=== PATIENT | female | born 1980 | race Caucasian/White ===

== ENCOUNTER → 2017-04-08 | Outpatient (REF) | payer OTHER | LOC: M SFHCWAGY 15:18 | PROVIDERS: ATTEND Family Medicine | DX: Z12.4 Encounter for screening for malignant neoplasm of cervix (principal) ==

== ENCOUNTER → 2017-07-27 | Outpatient (CLI) | payer OTHER | LOC: M RAD 14:37 | DX: N63.20 Unspecified lump in the left breast, unspecified quadrant (principal) | CPT/HCPCS: 77065 ==

== ENCOUNTER → 2017-09-30 | Outpatient (CLI) | payer OTHER | LOC: M RAD 14:45 | DX: Z30.431 Encounter for routine checking of intrauterine contraceptive device (principal) | CPT/HCPCS: 76856 ==

== ENCOUNTER → 2017-10-18 | Outpatient (CLI) | payer OTHER | LOC: M RAD 17:44 | DX: T19.3XXA Foreign body in uterus, initial encounter (principal); Z30.8 Encounter for other contraceptive management | CPT/HCPCS: 74018 ==

== ENCOUNTER 2018-12-01 07:57 | Day surgery (SDC) | payer OTHER ==
[~2018-12-01] VITALS: Ht 154.9 cm; Wt 80.7 kg
[~2018-12-01 07:57] MED LIST: BRONCHW PO; FLUO20CA19 PO; METR0.7533; OMEP-221 PO
[2018-12-01] MEDS ORDERED: BUPIVACAINE HCL 0.25% 30 ML VIAL As Ordered ONE (08:29)
[2018-12-01 08:34] LABS: HEMOGLOBIN 12.8 g/dl (12.0-15.5); MEAN CORPUSCULAR HGB CONC 32.8 g/dl (32.0-36.5); MEAN CORPUSCULAR VOLUME 88.4 fl (80.0-96.0); PLATELET COUNT, AUTOMATED 221 10^3/uL (150-450); RED BLOOD COUNT 4.41 10^6/uL (4.00-5.40); WHITE BLOOD COUNT 5.9 10^3/uL (4.0-10.0)
[2018-12-01 08:35] LABS: URINE PREG TEST NEGATIVE (NEGATIVE)
[2018-12-01] MEDS ORDERED: MIDAZOLAM INJ 2 MG/2 ML VIAL (J2250) As Ordered ONE (09:04)
[2018-12-01] MEDS ORDERED: ROCURONIUM BROMIDE 50 MG/5 ML VIAL As Ordered ONE (09:04)
[2018-12-01] MEDS ORDERED: LIDOCAINE 2% INJ 100 MG/5 ML SDV (FOR ANES.) As Ordered ONE (09:04)
[2018-12-01] MEDS ORDERED: fentaNYL 100 MCG/2 ML INJECTION (J3010) As Ordered ONE (09:04)
[2018-12-01] MEDS ORDERED: dexameTHASONE 4 MG/ML 1ML VIAL (J1100) As Ordered ONE (09:04)
[2018-12-01] MEDS ORDERED: ACETAMINOPHEN 1000MG 100ML IV BTL (OFIRMEV) (J0131 PER 10MG) As Ordered ONE ×2 (09:04→09:18)
[2018-12-01] MEDS ORDERED: PROPOFOL 200 MG/20 ML VIAL As Ordered ONE (09:04)
[2018-12-01] MEDS ORDERED: ONDANSETRON 4MG/2ML VIAL (J2405) As Ordered ONE (09:08)
[2018-12-01] MEDS ORDERED: SUGAMMADEX SODIUM 500 MG/5 ML VIAL (BRIDION) As Ordered ONE (09:24)
[2018-12-01] MEDS ORDERED: KETOROLAC 30 MG/ML VIAL (J1885) As Ordered ONE (10:07)
[2018-12-01] MEDS ORDERED: oxyCODONE 5MG TAB As Ordered ONE (10:07)
[2018-12-01] MEDS ORDERED: OXYC1TAB23 PO (10:17)
[2018-12-01] MEDS ORDERED: IBUP-1022 PO (10:18)
[2018-12-01] MEDS: oxyCODONE 5MG TAB PO PRN ×2 (10:40→10:45)
[2018-12-01] MEDS ORDERED: PERCOCET 5MG/325MG TAB PO PRN (10:45)
[2018-12-01] MEDS ORDERED: PROMETHAZINE INJ 25 MG/ML VIAL (J2550) IV PRN (10:45)
[2018-12-01] MEDS ORDERED: fentaNYL 100 MCG/2 ML INJECTION (J3010) IV PRN (10:45)
[2018-12-01] MEDS ORDERED: LR 1,000 ML IV SCH ×2 (10:45)
[2018-12-01] MEDS ORDERED: KETOROLAC 30 MG/ML VIAL (J1885) IV PRN (10:45)
[2018-12-01 12:11] VITALS: BP 110/64
--- NOTE | 2018-12-02 08:16 | RO ---
DATE OF PROCEDURE: 12/01/2018 PREPROCEDURE DIAGNOSIS: Undesired fertility. POSTPROCEDURE DIAGNOSIS: Undesired fertility. PROCEDURE: Laparoscopic bilateral salpingectomy, removal of Nexplanon device from left arm. SURGEON: Dr. Zachariah Lewis. ANESTHESIA: General endotracheal. ESTIMATED BLOOD LOSS: Minimal. URINE OUTPUT: 50 mL. FINDINGS: Normal pelvis, uterus, fallopian tubes and ovaries. Normal upper abdomen. OPERATIVE SUMMARY: The patient was taken to the operating room where general endotracheal anesthesia was induced. She was prepped and draped in a sterile fashion in dorsal lithotomy position. The bladder was emptied with a catheter. Hulka tenaculum was placed using the manipulator. Periumbilical incision was made with a scalpel. Veress needle was placed through this incision while tenting upon the skin of the abdomen. Intra-abdominal location of the Veress needle was assessed with use of saline filled syringe. Pneumoperitoneum was created. Veress needle was removed. 5 mm trocar using Visiport was inserted. An 8 mm and 5 mm suprapubic port were placed under direct visualization. Fallopian tubes were grasped at the fimbriated end with the grasping instrument. LigaSure device was used to coagulate and incise broad ligament attachments to the tubes. Tubes were amputated near their origin. Both tubes were removed through the suprapubic ports. The pneumoperitoneum was released. All instruments were removed. Skin was closed with #4-0 Monocryl subcuticular sutures. Attention was turned to the left arm which was prepped and draped in a sterile fashion. Incision was made with a scalpel in the appropriate area in the left arm overlying the Nexplanon device. Mosquito forceps was used to dissect the adhesions to the device, the device was then grasped at its distal end and removed intact. A single interrupted suture of #4-0 Monocryl was placed and a bandage was placed. The patient was extubated and went to recovery room in stable condition.
== END 2018-12-01 12:45 | disposition home or self-care (01) ==
LOC: M SDC 07:57
PROVIDERS: ATTEND Specialist
DX: Z30.2 Encounter for sterilization (principal); K21.9 Gastro-esophageal reflux disease without esophagitis; F41.9 Anxiety disorder, unspecified; Z79.899 Other long term (current) drug therapy
CPT/HCPCS: 11982; 36415; 58661; 84703; 85027; 88302; J0131; J1100; J1885; J2250; J2405; J3010

== ENCOUNTER 2020-05-03 19:33 | Day surgery (SDC) | payer OTHER ==
[~2020-05-03] VITALS: Ht 154.9 cm; Wt 81.8 kg
[~2020-05-03 19:33] MED LIST changes: -FLUO20CA19 PO; +FLUO20CA22 PO; +IBUP-1022 PO; +OXYC1TAB23 PO
[2020-05-03] MEDS ORDERED: PROBCAP14 PO (19:55)
[2020-05-03] MEDS ORDERED: PIPERACILLIN/TAZOBACTAM SOD 3.375 GM in D5W MINI-BAG PLUS 50 ML IV ONE (20:45)
[2020-05-03] MEDS: LR 1,000 ML IV SCH (21:12)
[2020-05-03] MEDS: MORPHINE 2 MG/ML 1ML VIAL (J2270) IV PRN (21:14)
[2020-05-03] MEDS ORDERED: dexameTHASONE 4 MG/ML 1ML VIAL (J1100 PER 1MG) As Ordered ONE (21:35)
[2020-05-03] MEDS ORDERED: MIDAZOLAM INJ 2MG/2ML VIAL (J2250 PER 1MG) As Ordered ONE (21:35)
[2020-05-03] MEDS ORDERED: propofoL 200 MG/20 ML VIAL As Ordered ONE (21:35)
[2020-05-03] MEDS ORDERED: ONDANSETRON 4MG/2ML VIAL As Ordered ONE (21:35)
[2020-05-03] MEDS ORDERED: ROCURONIUM BROMIDE 50 MG/5 ML VIAL As Ordered ONE (21:35)
[2020-05-03] MEDS ORDERED: LIDOCAINE 2% 100MG/5ML SDV (FOR ANES.) As Ordered ONE (21:35)
[2020-05-03] MEDS ORDERED: fentaNYL 250 MCG/5 ML INJECTION (J3010) As Ordered ONE (21:35)
[2020-05-03] MEDS ORDERED: SUGAMMADEX SODIUM 500 MG/5 ML VIAL (BRIDION) As Ordered ONE (21:35)
[2020-05-03] MEDS ORDERED: BUPIVACAINE HCL 0.5% 30 ML VIAL As Ordered ONE (21:44)
[2020-05-03] MEDS ORDERED: LIDOCAINE 1% MDV 20ML VIAL As Ordered ONE (21:44)
[2020-05-03] MEDS ORDERED: PHENYLephrine HCL 500 MCG/5 ML (100MCG/ML) SYRINGE (J2370) As Ordered ONE (22:13)
[2020-05-03] MEDS ORDERED: ePHEDrine SULFATE 25 MG/5 ML(5MG/ML) SYRINGE As Ordered ONE (22:13)
[2020-05-03] MEDS ORDERED: ACETAMINOPHEN 1000MG 100ML IV BTL (OFIRMEV) (J0131 PER 10MG) As Ordered ONE (22:19)
[2020-05-03] MEDS ORDERED: KETOROLAC 60MG 2ML VIAL As Ordered ONE (23:19)
[2020-05-03] MEDS ORDERED: oxyCODONE 5MG TAB PO PRN (23:30)
[2020-05-03] MEDS ORDERED: MEPERIDINE INJ 25 MG/ML VIAL (J2175) IV PRN (23:30)
[2020-05-03] MEDS ORDERED: METOCLOPRAMIDE INJ 10MG/2ML VIAL (J2765 PER 1) IV PRN (23:30)
[2020-05-03] MEDS ORDERED: ONDANSETRON 4MG/2ML VIAL IV PRN (23:30)
[2020-05-03] MEDS ORDERED: fentaNYL 100 MCG/2 ML INJECTION (J3010) IV PRN (23:30)
[2020-05-03] MEDS ORDERED: LR 1,000 ML IV SCH (23:30)
[2020-05-04] VITALS (8 sets, daily range): BP systolic 97–138; BP diastolic 47–69
[2020-05-04] MEDS ORDERED: ACETAMINOPHEN TAB 650MG DOSE (2X325MG) PO PRN
[2020-05-04] MEDS ORDERED: oxyCODONE 5MG TAB PO PRN
[2020-05-04] MEDS: IBUPROFEN 600MG TAB PO PRN ×2 (01:40→14:03)
[2020-05-04] MEDS: MORPHINE 2 MG/ML 1ML VIAL (J2270) IV PRN ×2 (03:42→06:57)
[2020-05-04] MEDS: LR 1,000 ML IV SCH (04:43)
[2020-05-04] MEDS ORDERED: FLUoxetine 20 MG CAP PO SCH (09:00)
--- NOTE | 2020-05-05 11:50 | RO ---
DATE OF OPERATION: 05/03/2020 PREOPERATIVE DIAGNOSIS: Acute appendicitis. POSTOPERATIVE DIAGNOSIS: Ruptured right ovarian follicle with some peritoneal blood and possible early appendicitis. PROCEDURE: Laparoscopic appendectomy. SURGEON: Rogelio Butcher MD ANESTHESIA: General. INDICATION FOR THE PROCEDURE: The patient is a 39-year-old woman who presented to the emergency department with a one day history of worsening lower abdominal pain. This had become primarily located in her right lower quadrant. She had significant tenderness to palpation. She was seen at [facility] and then referred to [facility] after a CT scan was obtained. It was interpreted as showing possible early appendicitis with some mild enlargement of the appendix and a suggestion of some periappendiceal inflammation. She is now for a laparoscopic appendectomy. OPERATIVE PROCEDURE: The patient was brought to the operating room and placed on the table in a supine position. She was placed under general endotracheal anesthesia. The patient's abdomen was prepped and draped in a sterile fashion. 0.5% Marcaine was infiltrated at each of the trocar sites as needed. A short transverse supraumbilical incision was made and deepened into the fascia. A Veress need was inserted; and after positive hanging drop test, the abdomen was inflated with carbon dioxide gas. After the abdomen was inflated, the fascia was scored at the midline and a 12 mm trocar was placed without difficulty. The laparoscope was inserted. Initial examination showed a small amount of bloody fluid noted in the pelvis and in the pericolic gutters in the lower part of abdomen. The small and large bowel looks normal and other than a small amount of bloody fluid. Two 5 mm ports were placed in the left lower quadrant. The patient was tilted to a slight Trendelenburg and rolled slightly to the left. Graspers were inserted. The terminal ileum was retracted medially and the appendix was identified lying along the retroperitoneum. This was perhaps slightly enlarged relative to normal, but it may be slightly hyperemic, but certainly did not appear significantly inflamed. There was no obvious inflammatory exudate and the appendix was soft and not indurated. Inspection in the pelvis identified the ovaries on both sides. There were small cystic area is noted on both sides with a large cyst in the superior aspect of the right ovary consistent with a ruptured follicle. There was an opening from the follicle and this would seem to have been the region for the source of the blood. A small amount of bloody fluid was suctioned from the lower abdomen and pelvis. There was no evidence of any ongoing bleeding. Attention was then turned to the appendix. I did contact Dr. Zachariah Lewis and ask if he thought there would be any contraindication to removing the appendix in the face of a small amount of bloody fluid in the abdomen and he felt there was not. The mesoappendix was then divided using the hook cautery with care to cauterize the appendicular vessels. The base of the appendix was stapled at its junction with the cecum with an endoscopic linear cutter 45 mm stapler with a blue load. The appendix was placed in an Endopouch. The right lower quadrant was irrigated and then inspected. There was no significant bleeding. The patient was returned to a flat position. The abdomen was deflated and the trocars were all removed. The appendix was recovered through the supraumbilical site. The fascia was closed with interrupted simple sutures of 2-0 Vicryl. The skin incisions were all closed with buried 4-0 Vicryl and Steri-Strips. Light dressings were applied. The patient tolerated the procedure well without apparent complications. She was awakened in the operating room, extubated and moved to the recovery room in stable condition. AUBREY
--- NOTE | 2020-05-05 12:56 | IPN ---
DATE: 05/04/2020 HISTORY OF PRESENT ILLNESS: The patient is a 39-year-old woman who underwent a laparoscopic appendectomy last evening. Her preoperative CT scan showed a 3 cm cyst in the right ovary but also showed an appendix that was described as somewhat dilated and with some mild periappendiceal inflammation. Her tenderness seemed to be in the appropriate position for her appendix. At surgery she was found to have a ruptured right ovarian follicle with a small amount of free blood in the abdomen. The appendix was noted to be perhaps mildly distended but did not appear acutely inflamed and was not indurated. She underwent an appendectomy. Vital signs show that the patient has been afebrile since her surgery. Her pulse is in the 70s and her blood pressure is excellent. Room air oxygen saturation is normal. Intake and output shows that she had 1,500 in yesterday and has several voids recorded but not measured. She has been taking liquids well today. PHYSICAL EXAMINATION: GENERAL APPEARANCE: She is alert and appears comfortable. She denies any nausea. She has had some flatus. HEART: Regular rhythm. LUNGS: clear. ABDOMEN: Mildly obese. She has very active bowel sounds. Her three dressings are clean and dry and there is no undue tenderness. IMPRESSION: The patient is doing very well one day postop from a laparoscopic appendectomy. Her pain was more likely related to her ruptured ovarian follicle with a small amount of intraperitoneal blood. The appendix was perhaps mildly distended but did not appear acutely inflamed. Her pathology is pending. PLAN: The patient was counseled that it was likely her ovarian cyst that was causing her pain. The appendix was removed and she will never have to wonder in the future if she has a similar pain if it is her appendix. She appears to be ready for discharge and she agrees. She can take a diet as tolerated. She should avoid any strenuous physical activity for 2 weeks. 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 She will take Tylenol or [id number] Ibuprofen as needed for discomfort. She should follow up in the office in approximately 10 days and call sooner for any problems. AUBREY
== END 2020-05-04 15:40 | disposition home or self-care (01) ==
LOC: M ED 19:33 → M SDC 19:34 → M MS5PR 05-04 00:19 → M SDC 05-04 15:40
PROVIDERS: ATTEND Surgery
DX: K35.890 Other acute appendicitis without perforation or gangrene (principal); N83.01 Follicular cyst of right ovary; K21.9 Gastro-esophageal reflux disease without esophagitis; Z79.899 Other long term (current) drug therapy; F41.9 Anxiety disorder, unspecified
CPT/HCPCS: 44970; 88304; 96365; 96375; 96376; 99285; J0131; J1100; J1885; J2250; J2270; J2370; J2405; J2543; J3010; U0002

== ENCOUNTER → 2020-06-02 | Outpatient (REF) | payer OTHER ==
[~2020-06-02] MED LIST changes: +PROBCAP14 PO
== END ==
LOC: M SFHCWAGY 17:08
PROVIDERS: ATTEND Nurse Practitioner Women's Health
DX: Z12.4 Encounter for screening for malignant neoplasm of cervix (principal)
CPT/HCPCS: 87624; G0123

== ENCOUNTER → 2021-08-22 | Outpatient (CLI) | payer OTHER ==
[~2021-08-22] MED LIST changes: -OMEP-221 PO; +OMEP40CA5 PO
== END ==
LOC: M LABSMTC 11:23
PROVIDERS: ATTEND Anesthesiology
DX: Z01.818 Encounter for other preprocedural examination (principal); Z11.52 Encounter for screening for COVID-19

== ENCOUNTER 2021-08-27 10:06 | Day surgery (SDC) | payer OTHER ==
[~2021-08-27] VITALS: Ht 154.9 cm; Wt 76.4 kg
[~2021-08-27 10:06] MED LIST changes: +NS 1,000 ML IV ONE
[2021-08-27] MEDS ORDERED: propofoL 200 MG/20 ML VIAL As Ordered ONE (11:00)
[2021-08-27] MEDS ORDERED: LIDOCAINE 2% 100MG/5ML SDV (FOR ANES.) As Ordered ONE (11:00)
[2021-08-27 12:43] VITALS: BP 125/65
== END 2021-08-27 12:53 | disposition home or self-care (01) ==
LOC: M OPP 10:06
PROVIDERS: ATTEND Internal Medicine Gastroenterology
DX: K64.8 Other hemorrhoids (principal); K52.9 Noninfective gastroenteritis and colitis, unspecified; K57.30 Diverticulosis of large intestine without perforation or abscess without bleeding; K92.1 Melena; K29.70 Gastritis, unspecified, without bleeding; R10.13 Epigastric pain; Z87.891 Personal history of nicotine dependence

== ENCOUNTER → 2023-11-01 | Outpatient (REF) | payer OTHER ==
[~2023-11-01] MED LIST changes: +METR0.7526; -METR0.7533; -NS 1,000 ML IV ONE
== END ==
LOC: M SFHCWAGY 15:00
PROVIDERS: ATTEND Nurse Practitioner Family
DX: Z12.4 Encounter for screening for malignant neoplasm of cervix (principal)
CPT/HCPCS: 87624; G0123

== ENCOUNTER → 2023-12-12 | Outpatient (CLI) | payer OTHER ==
[~2023-12-12] MED LIST changes: +FLUO-365 PO; -FLUO20CA22 PO
== END ==
LOC: M WHC 14:52
PROVIDERS: ATTEND Nurse Practitioner Family
DX: R10.2 Pelvic and perineal pain (principal); R93.89 Abnormal findings on diagnostic imaging of other specified body structures

== ENCOUNTER 2024-08-13 06:05 | Day surgery (SDC) | payer OTHER ==
[~2024-08-13] VITALS: Ht 154.9 cm; Wt 84.3 kg
[2024-08-13] MEDS ORDERED: NS (Normal Saline) 0.9% 1,000 ML IV SCH ×2 (06:25→09:00)
[2024-08-13 07:07] LABS: HEMATOCRIT 40.6 % (36.0-47.0); HEMOGLOBIN 13.9 g/dl (12.0-15.5); MEAN CORPUSCULAR HGB CONC 34.2 g/dl (32.0-36.5); MEAN CORPUSCULAR VOLUME 90.6 fl (80.0-96.0); PLATELET COUNT, AUTOMATED 201 10^3/uL (150-450); RED BLOOD COUNT 4.48 10^6/uL (4.00-5.40); WHITE BLOOD COUNT 6.5 10^3/uL (4.0-10.0)
[2024-08-13] MEDS ORDERED: ROCURONIUM BROMIDE 50MG/5ML VIAL As Ordered ONE (07:08)
[2024-08-13] MEDS ORDERED: ONDANSETRON 4MG 2ML VIAL As Ordered ONE (07:08)
[2024-08-13] MEDS ORDERED: LIDOCAINE 2% 100MG/5ML SDV (FOR ANES.) As Ordered ONE (07:08)
[2024-08-13] MEDS ORDERED: fentaNYL 100 MCG/2 ML INJECTION As Ordered ONE (07:08)
[2024-08-13] MEDS ORDERED: propofoL 200 MG/20 ML VIAL As Ordered ONE (07:08)
[2024-08-13] MEDS ORDERED: ACETAMINOPHEN 1000MG/100ML IV BAG As Ordered ONE (07:08)
[2024-08-13] MEDS ORDERED: MIDAZOLAM INJ 2MG/2ML VIAL As Ordered ONE (07:08)
[2024-08-13] MEDS ORDERED: dexmedeTOMIDine (4MCG/ML)200MCG/50ML BTL (PRECEDEX) As Ordered ONE (07:08)
[2024-08-13] MEDS: SCOPOLAMINE 1MG TRANSDERMAL PATCH As Ordered ONE (07:37)
[2024-08-13] MEDS: SCOPOLAMINE 1MG TRANSDERMAL PATCH TOP ONE (07:38)
[2024-08-13] MEDS: ceFAZolin SOD 2 GM in IV 1 EA IV ONE (07:45)
[2024-08-13] MEDS ORDERED: GLYCOPYRROLATE INJ 0.2 MG/ML 2 ML VIAL As Ordered ONE (08:09)
[2024-08-13] MEDS ORDERED: SUGAMMADEX SODIUM 500 MG/5 ML VIAL (BRIDION) As Ordered ONE (08:12)
[2024-08-13] MEDS ORDERED: KETOROLAC 60MG 2ML VIAL As Ordered ONE (08:12)
[2024-08-13] MEDS ORDERED: ePHEDrine SULFATE 25 MG/5 ML(5MG/ML) SYRINGE As Ordered ONE (08:27)
[2024-08-13] MEDS ORDERED: METOCLOPRAMIDE INJ 10MG/2ML VIAL As Ordered ONE (08:33)
[2024-08-13] MEDS ORDERED: ONDANSETRON 4MG 2ML VIAL IV PRN (09:00)
[2024-08-13] MEDS ORDERED: OXYC1TAB23 PO (09:07)
[2024-08-13] MEDS ORDERED: COLA100C5 PO (09:08)
[2024-08-13] MEDS: HYDROMORPHONE HCL 0.5 MG/ 0.5 ML SYRINGE IV PRN (09:17)
[2024-08-13] MEDS: oxyCODONE 5MG TAB PO PRN (09:18)
[2024-08-13] MEDS: fentaNYL 100 MCG/2 ML INJECTION IV PRN (09:30)
[2024-08-13] MEDS ORDERED: LR 1,000 ML IV SCH (09:55)
[2024-08-13] MEDS ORDERED: PERCOCET 5MG/325MG TAB PO PRN (10:00)
[2024-08-13 11:20] VITALS: BP 108/60; TEMP 97; O2SAT 98
== END 2024-08-13 11:34 | disposition home or self-care (01) ==
LOC: M SDC 06:05
PROVIDERS: ATTEND Specialist
DX: N80.03 Adenomyosis of the uterus (principal); N92.0 Excessive and frequent menstruation with regular cycle; N83.02 Follicular cyst of left ovary; N83.01 Follicular cyst of right ovary; Z90.49 Acquired absence of other specified parts of digestive tract; Z90.89 Acquired absence of other organs
CPT/HCPCS: 36415; 58571; 85027; 86850; 86900; 86901; 88307; J0131; J0665; J0690; J1100; J1171; J1596; J1885; J2250; J2405; J2765; J3010; S2900

== ENCOUNTER → 2025-01-22 | Outpatient (REF) | payer OTHER ==
[~2025-01-22] MED LIST changes: +COLA100C5 PO
== END ==
LOC: M SFHCWAGY 10:11
PROVIDERS: ATTEND Nurse Practitioner Family
DX: R35.0 Frequency of micturition (principal)